=== PATIENT | female | born 1950 | race Caucasian/White ===

== ENCOUNTER → 2016-04-16 | Outpatient (CLI) | payer MEDICARE ==
[~2016-04-16] MED LIST: NEXIUM 24HR20 MG PO; NEXIUM PO; PROBIOTIC1 EAC1 PO
--- NOTE | ~2016-04-16 | BD1 ---
[facility] A Service of [facility] RADIOLOGY TEXT RESULTS PATIENT: RAJEEV FERREIRA LOCATION: [facility] : 46 UNIT #: [id number] AGE: [address]: Iliana Manzo MD SEX: F ORDER DR: [id number] [facility] [address] [place], [place] [address] [id number] O MR#: [id number] Acc #: [id number] NAME: RAJEEV FERREIRA. : 1950 SEX: F STUDY DATE/TIME: 04/16/2016 10:21 UNIT: [facility] ROOM: STUDY DESCRIPTION: BD Dexa Bone Dens 1+ Site Attending Physician: Iliana Manzo M.D. Ordering Physician: Iliana Manzo M.D. Primary Care Physician: Iliana Manzo M.D. MEDICAL IMAGING REPORT This report is preliminary unless electronic signature is present EXAM DXA scan, 04/16/2016. HISTORY Status post menopause with no hormone replacement therapy. Osteopenia. Smoking history for 50 years. FINDINGS Bone mineral density in the lumbar spine from L1 through L4 was 1.084 g/cm2, which is 0.3 standard deviation above the mean, when compared to the young adult reference population, which is within the range of normal. This is 2.3 standard deviations above the mean, when compared to the age-matched population. Compared with 11/04/2013, there has been a decrease in bone mineral density in the lumbar spine of 2.3%. Bone mineral density in the left femoral neck was 0.652 g/cm2, which is 1.8 standard deviations below the mean, when compared to the young adult reference population, which is characteristic of osteopenia. This is 0.1 standard deviation below the mean when compared to the age-matched population. Compared with 11/04/2013, there has been a decrease in bone mineral density in the left hip of 3.4%. IMPRESSION Bone mineral density in the lumbar spine within the range of normal and within the left hip characteristic of osteopenia. Compared with 11/04/2013, there has been a decrease in bone mineral density in the lumbar spine and the left hip. Dictated by... Holden Covington M.D. [facility] A Service of [facility] RADIOLOGY TEXT RESULTS PATIENT: RAJEEV FERREIRA LOCATION: [facility] #: [id number] : 46 UNIT #: [id number] AGE: [address]: Iliana Manzo MD SEX: F ORDER DR: THIS IS AN ELECTRONICALLY VERIFIED REPORT Holden Covington M.D. at 04/17/2016 6:06 AM Rm TD: 04/16/2016 16:46 JOB #: [id number] MEDICAL IMAGING REPORT COPY
--- NOTE | ~2016-04-16 | MY11 ---
[facility] A Service of [facility] RADIOLOGY TEXT RESULTS PATIENT: RAJEEV FERREIRA LOCATION: [facility] : 46 UNIT #: [id number] AGE: [address]: Iliana Manzo MD SEX: F ORDER DR: [id number] [facility] [address] [place], [place] [address] [id number] O MR#: [id number] Acc #: [id number] NAME: RAJEEV FERREIRA. : 1950 SEX: F STUDY DATE/TIME: 04/16/2016 10:42 UNIT: [facility] ROOM: STUDY DESCRIPTION: MY Mammogram Screening Dig Guicho Attending Physician: Iliana Manzo M.D. Ordering Physician: Iliana Manzo M.D. Primary Care Physician: Iliana Manzo M.D. MEDICAL IMAGING REPORT This report is preliminary unless electronic signature is present EXAM Bilateral digital screening mammogram with CAD INDICATION Routine screening. No current complaints. Family history of breast cancer in mother. COMPARISON 11/04/2013, 05/03/2010 FINDINGS MLO and CC digital views of each breast were obtained and reviewed with an FDA-approved CAD device. The breasts are almost entirely fatty replaced. There are no masses or abnormal calcifications. IMPRESSION No change and no evidence of malignancy. Patients over the age of 40 are entered into a reminder system with target due date for the next mammogram. A result letter will also be sent to the patient. BIRADS: 1 Negative Dictated by... Jose Rafael Sung M.D. THIS IS AN ELECTRONICALLY VERIFIED REPORT Jose Rafael Sung M.D. at 04/17/2016 7:13 AM JOHNIE/saniya TD: 04/16/2016 17:01 JOB #: [id number] [facility] A Service of [facility] RADIOLOGY TEXT RESULTS PATIENT: RAJEEV FERREIRA LOCATION: [facility] #: [id number] : 46 UNIT #: [id number] AGE: [address]: Iliana Manzo MD SEX: F ORDER DR: MEDICAL IMAGING REPORT COPY
== END | disposition home or self-care (01) ==
LOC: CWCC 09:58
DX: Z12.31 Encounter for screening mammogram for malignant neoplasm of breast (principal); M81.0 Age-related osteoporosis without current pathological fracture; F17.210 Nicotine dependence, cigarettes, uncomplicated; Z80.3 Family history of malignant neoplasm of breast; M85.88 Other specified disorders of bone density and structure, other site
CPT/HCPCS: 77080; G0202